=== PATIENT | female | born 1995 | race Caucasian/White ===

== ENCOUNTER 2017-06-21 15:09 | Inpatient (IN) | payer BC ==
[~2017-06-21] VITALS: Ht 162.6 cm; Wt 54.4 kg
[2017-06-21] VITALS (7 sets, daily range): BP systolic 104–116; BP diastolic 55–72
[2017-06-21] MEDS ORDERED: GUANFACINE HCL1 MG PO (15:12)
[2017-06-21] MEDS ORDERED: LAMOTRIGINE200 MG PO (15:12)
[2017-06-21] MEDS ORDERED: LEXAPRO20 MG ORAL (15:12)
[2017-06-21] MEDS ORDERED: KLONOPIN1 MG ORAL (15:12)
--- NOTE | 2017-06-21 15:22 | Emergency Room Report ---
History of Present Illness General Chief Complaint: Overdose Source: Patient, EMS Present Illness HPI 21-year-old female brought in by EMS and [employer] with suspected overdose Patient allegedly texted a friend 14 hours prior and stated that she wanted to hurt herself Police were contacted at the time, but did not go to residence Patient endorses "50" clonazepam tablets, and a bottle of wine She also cut right-sided neck and both wrists history otherwise limited due to altered mental status and lethargy Allergies: Coded Allergies: No Known Allergies (Unverified , 06/21/17) Patient History Past Medical History: unable to obtain, psych hx Past Surgical History: unable to obtain Pertinent Family History: unable to obtain Social History: Denies: smoking, alcohol use, drug use Now: No Immunizations: UTD Reviewed Nursing Documentation: PMH: Agreed, PSxH: Agreed Nursing Documentation-PMH Past Medical History: No History, Except For Review of Systems All Other Systems: negative except mentioned in HPI Physical Exam Vital Signs Date Time Temp Pulse Resp B/P (MAP) Pulse Ox O2 Delivery O2 Flow Rate FiO2 06/21/17 15:04 82 16 102/55 100 Room Air Sp02 EP Interpretation: reviewed, normal General Appearance: normal inspection, well appearing, no apparent distress, lethargic Head: normocephalic, atraumatic Eyes: bilateral eye PERRL, bilateral eye EOMI, bilateral eye other - pupils dilated ENT: normal ENT inspection, hearing grossly normal, normal voice Neck: normal inspection, full range of motion, supple, no bony tend Respiratory: normal inspection, lungs clear, normal breath sounds, no respiratory distress, no retraction, no accessory muscle use, no wheezing, speaking full sentences Cardiovascular #1: regular rate, rhythm, no edema Gastrointestinal: normal inspection, normal bowel sounds, non tender, soft, no guarding, no hernia Genitourinary: no CVA tenderness Musculoskeletal: normal inspection, back normal, normal range of motion, Mary' s Sign negative Neurologic: normal inspection, alert, responsive, field account manager III-XII nml as tested, motor strength/tone normal, speech normal Psychiatric: normal inspection, judgement/insight normal, mood/affect normal Skin: normal inspection, normal color, no rash, other - abrasion to right side of neck, right wrist. Small 1cm lac to left wrist Medical Decision Making Diagnostic Impression: Primary Impression: Drug overdose Qualified Codes: T50.902A - Poisoning by unspecified drugs, medicaments and biological substances, intentional self-harm, initial encounter Additional Impression: UTI (urinary tract infection) Qualified Codes: N30.01 - Acute cystitis with hematuria ER Course 21-year-old female with suspected overdose on benzodiazepines and alcohol Onset unknown, possibly 11 PM, 14 hours prior Pupils are dilated, respiratory rate is normal, unlikely opioid overdose EKG has normal QTC, no seizure activity. Troponin normal. Urine tox negative, alcohol level negative. No other major metabolic abnormalities UA grossly infected for UTI, was given IV Rocephin Small lac on left wrist - over 12 hours, will leave for wound healing with secondary intention. All wounds cleaned, bandaged. Telemetry admission per panel, Dr. Schafer at 4:10 PM EKG Diagnostic Results Rate: normal Rhythm: NSR ST Segments: no acute changes ASA given to the pt in ED: No Rhythm Strip Diag. Results EP Interpretation: yes Rate: 78 Rhythm: NSR, other - +PVC Last Vital Signs Date Time Temp Pulse Resp B/P (MAP) Pulse Ox O2 Delivery O2 Flow Rate FiO2 06/21/17 15:04 82 16 102/55 100 Room Air Status: improved Disposition: ADMITTED INPATIENT Condition: Serious JUAN MERLOS M.D. Jun 21, 2017 15:22
[2017-06-21 15:43] LABS: MEAN CORPUSCULAR HEMOGLOBIN 22.3 PG (27.0-31.0); MEAN CORPUSCULAR HGB CONC 30.5 G/DL (32.0-36.0); MEAN CORPUSCULAR VOLUME 73 FL (80-99); MEAN PLATELET VOLUME 10.3 FL (6.5-10.1); PLATELET COUNT 182 K/UL (150-450); RED BLOOD COUNT 4.78 M/UL (4.20-5.40); RED CELL DISTRIBUTION WIDTH 17.6 % (11.6-14.8); WHITE BLOOD COUNT 8.4 K/UL (4.8-10.8)
[2017-06-21 15:48] LABS: APPEARANCE,URINE SLIGHTLY CLOUDY; KETONES,URINE NEGATIVE (NEGATIVE); LEUKOCYTE ESTERASE ,URINE 3+ (NEGATIVE); NITRITE,URINE NEGATIVE (NEGATIVE); PH,URINE 6 (4.5-8.0); PROTEIN,URINE 3+ (NEGATIVE); UROBILINOGEN,URINE NORMAL MG/DL (0.0-1.0)
[2017-06-21 15:53] LABS: ANION GAP 9 mmol/L (5-15); CALCIUM 9.2 MG/DL (8.5-10.1); CARBON DIOXIDE 28 MMOL/L (21-32); CHLORIDE 105 MMOL/L (98-107); CREATININE 1.3 MG/DL (0.55-1.30); GLOMERULAR FILTRATION RATE 52.2 mL/min (>60); POTASSIUM 4.2 MMOL/L (3.5-5.1); SODIUM 142 MMOL/L (136-145)
[2017-06-21 15:58] LABS: ALANINE AMINOTRANSFERASE 11 U/L (12-78); ALBUMIN/GLOBULIN RATIO 1.1 (1.0-2.7); ASPARTATE AMINO TRANSFERASE 14 U/L (15-37); TOTAL PROTEIN 7.8 G/DL (6.4-8.2)
[2017-06-21 16:02] LABS: BACTERIA,URINE MODERATE /HPF; SQUAMOUS EPITHELIAL CELL,UR FEW /LPF (NONE/OCC); WBC,URINE 30-40 /HPF (0 - 2)
[2017-06-21 16:08] LABS: ACETAMINOPHEN < 2 MCG/ML (10-30); ALCOHOL < 3 mg/dL
[2017-06-21] MEDS ORDERED: cefTRIAXone 1 GM in NS 55 ML IVPB ONE (16:15)
[2017-06-21 16:26] LABS: BAND NEUTROPHILS % (MANUAL) 1 % (0-8); BASOPHILS % (MANUAL) 0 % (0-2); EOSINOPHILS % (MANUAL) 0 % (0-3); LYMPHOCYTES % (MANUAL) 9 % (20-45); NEUTROPHILS % (MANUAL) 85 % (45-75); PLATELET ESTIMATE ADEQUATE; PLATELET MORPHOLOGY NORMAL; TOTAL CELLS COUNTED 100
[2017-06-21 16:27] LABS: HYPOCHROMASIA 1+
--- NOTE | 2017-06-21 19:04 | History and Physical ---
History of Present Illness General Date patient seen: Jun 21, 2017 Reason for Hospitalization: Overdose Present Illness HPI 21-year-old female with unknown PMHxo brought in by EMS and [employer] with suspected overdose. She texted a friend 14 hours prior and stated that she wanted to hurt herself Patient too "50" clonazepam tablets, and a bottle of wine. She was somnolent on arrival and admitted to telemetry for further evaluation. Allergies: Coded Allergies: No Known Allergies (Unverified , 06/21/17) Medication History Scheduled Clonazepam* (Klonopin*), 1 MG ORAL Q6H, (Reported) Escitalopram Oxalate* (Lexapro*), 20 MG ORAL DAILY, (Reported) Miscellaneous Medications Guanfacine Hcl (Guanfacine Hcl), 1 MG PO, (Reported) Lamotrigine (Lamotrigine), 200 MG PO, (Reported) Patient History Healthcare decision maker Resuscitation status Advanced Directive on File Review of Systems Constitutional: Reports: no symptoms Eye: Reports: no symptoms All Other Systems: negative except mentioned in HPI Physical Exam General Appearance: lethargic Lines, tubes and drains: peripheral HEENT: normocephalic, atraumatic Neck: non-tender, normal alignment Respiratory/Chest: chest wall non-tender, lungs clear Cardiovascular/Chest: normal peripheral pulses, normal rate Abdomen: normal bowel sounds, non tender Genitourinary/Rectal: normal genital exam Extremities: normal range of motion Skin Exam: normal pigmentation Last 24 Hour Vital Signs Date Time Temp Pulse Resp B/P (MAP) Pulse Ox O2 Delivery O2 Flow Rate FiO2 06/21/17 17:54 97.0 75 22 116/67 98 Room Air 06/21/17 17:00 68 18 116/65 99 Room Air 06/21/17 16:30 68 18 112/61 99 Room Air 06/21/17 15:30 77 19 104/55 99 Room Air 06/21/17 15:20 84 14 06/21/17 15:04 82 16 102/55 100 Room Air Intake and Output 06/21/17 06/22/17 19:00 07:00 Intake Total 1055 ml Balance 1055 ml Intake IV Total 1055 ml Laboratory Tests Test 06/21/17 15:12 06/21/17 15:30 White Blood Count 8.4 K/UL (4.8-10.8) Red Blood Count 4.78 M/UL (4.20-5.40) Hemoglobin 10.7 G/DL (12.0-16.0) L Hematocrit 34.9 % (37.0-47.0) L Mean Corpuscular Volume 73 FL (80-99) L Mean Corpuscular Hemoglobin 22.3 PG (27.0-31.0) L Mean Corpuscular Hemoglobin Concent 30.5 G/DL (32.0-36.0) L Red Cell Distribution Width 17.6 % (11.6-14.8) H Platelet Count 182 K/UL (150-450) Mean Platelet Volume 10.3 FL (6.5-10.1) H Neutrophils (%) (Auto) % (45.0-75.0) Lymphocytes (%) (Auto) % (20.0-45.0) Monocytes (%) (Auto) % (1.0-10.0) Eosinophils (%) (Auto) % (0.0-3.0) Basophils (%) (Auto) % (0.0-2.0) Differential Total Cells Counted 100 Neutrophils % (Manual) 85 % (45-75) H Lymphocytes % (Manual) 9 % (20-45) L Monocytes % (Manual) 5 % (1-10) Eosinophils % (Manual) 0 % (0-3) Basophils % (Manual) 0 % (0-2) Band Neutrophils 1 % (0-8) Platelet Estimate Adequate Platelet Morphology Normal Red Blood Cell Morphology Hypochromasia 1+ Sodium Level 142 MMOL/L (136-145) Potassium Level 4.2 MMOL/L (3.5-5.1) Chloride Level 105 MMOL/L (98-107) Carbon Dioxide Level 28 MMOL/L (21-32) Anion Gap 9 mmol/L (5-15) Blood Urea Nitrogen 16 mg/dL (7-18) Creatinine 1.3 MG/DL (0.55-1.30) Estimat Glomerular Filtration Rate 52.2 mL/min (>60) Glucose Level 113 MG/DL (74-106) H Calcium Level 9.2 MG/DL (8.5-10.1) Total Bilirubin 0.9 MG/DL (0.2-1.0) Aspartate Amino Transf (AST/SGOT) 14 U/L (15-37) L Alanine Aminotransferase (ALT/SGPT) 11 U/L (12-78) L Alkaline Phosphatase 84 U/L (46-116) Total Creatine Kinase 69 U/L (26-308) Troponin I 0.000 ng/mL (0.000-0.056) Total Protein 7.8 G/DL (6.4-8.2) Albumin 4.1 G/DL (3.4-5.0) Globulin 3.7 g/dL Albumin/Globulin Ratio 1.1 (1.0-2.7) Salicylates Level < 0.2 ug/mL (2.8-20) L Acetaminophen Level < 2 MCG/ML (10-30) L Serum Alcohol < 3 mg/dL Urine Color Pale yellow Urine Appearance Slightly cloudy Urine pH 6 (4.5-8.0) Urine Specific [place] 1.015 (1.005-1.035) Urine Protein 3+ (NEGATIVE) H Urine Glucose (UA) Negative (NEGATIVE) Urine Ketones Negative (NEGATIVE) Urine Occult Blood 5+ (NEGATIVE) H Urine Nitrite Negative (NEGATIVE) Urine Bilirubin Negative (NEGATIVE) Urine Urobilinogen Normal MG/DL (0.0-1.0) Urine Leukocyte Esterase 3+ (NEGATIVE) H Urine RBC 5-10 /HPF (0 - 2) H Urine WBC 30-40 /HPF (0 - 2) H Urine Squamous Epithelial Cells Few /LPF (NONE/OCC) Urine Bacteria Moderate /HPF (NONE) H Urine HCG, Qualitative Negative Urine Opiates Screen Negative (NEGATIVE) Urine Barbiturates Screen Negative (NEGATIVE) Phencyclidine (PCP) Screen Negative (NEGATIVE) Urine Amphetamines Screen Negative (NEGATIVE) Urine Benzodiazepines Screen Negative (NEGATIVE) Urine Cocaine Screen Negative (NEGATIVE) Urine Marijuana (THC) Screen Negative (NEGATIVE) Height (Feet): 5 Height (Inches): 4.00 Weight (Pounds): 120 Assessment/Plan Problem List: (1) Acute encephalopathy ICD Codes: G93.40 - Encephalopathy, unspecified SNOMED: [id number] (2) Drug overdose ICD Codes: T50.901A - Poisoning by unspecified drugs, medicaments and biological substances, accidental (unintentional), initial encounter SNOMED: [id number] Qualifiers: Qualified Codes: T50.902A - Poisoning by unspecified drugs, medicaments and biological substances, intentional self-harm, initial encounter Assessment/Plan npo IV fluids telemetry monitoring Psych evaluation dvt prophylaxis NEIL HOSKINS Jun 21, 2017 19:04
[2017-06-21] MEDS ORDERED: Morphine Sulfate 2mg/ml Inj IVP PRN (19:15)
[2017-06-21] MEDS ORDERED: LORazepam Inj 2mg/ml 1ml IV PRN (19:15)
[2017-06-21] MEDS: D5 1/2NS 1,000 ML IV SCH (21:17)
[2017-06-21] MEDS: Heparin 5000 units/ml inj SUBQ SCH (21:19)
[2017-06-22] VITALS: BP 90/51
[2017-06-22 04:00] VITALS: BP 91/54
[2017-06-22 07:47] LABS: BASOPHILS % (AUTO) 0.5 % (0.0-2.0); EOSINOPHILS % (AUTO) 0.5 % (0.0-3.0); LYMPHOCYTES % (AUTO) 16.6 % (20.0-45.0); MEAN CORPUSCULAR HEMOGLOBIN 22.6 PG (27.0-31.0); MEAN CORPUSCULAR HGB CONC 31.9 G/DL (32.0-36.0); MEAN CORPUSCULAR VOLUME 71 FL (80-99); MEAN PLATELET VOLUME 11.7 FL (6.5-10.1); MONOCYTES % (AUTO) 7.2 % (1.0-10.0); NEUTROPHILS % (AUTO) 75.2 % (45.0-75.0); PLATELET COUNT 193 K/UL (150-450); RED CELL DISTRIBUTION WIDTH 17.5 % (11.6-14.8)
[2017-06-22 07:58] LABS: ALANINE AMINOTRANSFERASE 9 U/L (12-78); ANION GAP 7 mmol/L (5-15); ASPARTATE AMINO TRANSFERASE 12 U/L (15-37); CALCIUM 8.5 MG/DL (8.5-10.1); CARBON DIOXIDE 27 MMOL/L (21-32); CHLORIDE 105 MMOL/L (98-107); CREATININE 1.1 MG/DL (0.55-1.30); GLOMERULAR FILTRATION RATE > 60 mL/min (>60); SODIUM 139 MMOL/L (136-145); TOTAL PROTEIN 6.6 G/DL (6.4-8.2)
[2017-06-22 08:00] VITALS: BP 97/55
[2017-06-22] MEDS: Heparin 5000 units/ml inj SUBQ SCH ×2 (10:21→22:04)
[2017-06-22 12:00] VITALS: BP 93/47
--- NOTE | 2017-06-22 13:48 | Pulmonology Progress Note ---
Assessment/Plan Problems: (1) Acute encephalopathy (2) Drug overdose Assessment/Plan still somnolent iv fluids talked to mother at the bed site, she [place] arranged a bed at a psych [place] state, she will drive her there by herself once she is more awake. Subjective ROS Limited/Unobtainable: No Constitutional: Reports: no symptoms HEENT: Repors: no symptoms Respiratory: Reports: no symptoms Allergies: Coded Allergies: No Known Allergies (Unverified , 06/21/17) Objective Last 24 Hour Vital Signs Date Time Temp Pulse Resp B/P (MAP) Pulse Ox O2 Delivery O2 Flow Rate FiO2 06/22/17 08:00 97.0 69 18 97/55 100 Room Air 06/22/17 08:00 73 06/22/17 04:00 99.3 69 19 91/54 96 Room Air 06/22/17 04:00 79 06/22/17 00:00 98.2 80 20 90/51 100 Room Air 06/22/17 00:00 78 06/21/17 20:00 99.0 77 20 114/72 100 Room Air 06/21/17 19:45 98.4 76 17 110/62 99 Room Air 06/21/17 19:32 98.4 76 17 110/62 99 Room Air 06/21/17 19:05 74 16 114/64 100 Room Air 06/21/17 17:54 97.0 75 22 116/67 98 Room Air 06/21/17 17:00 68 18 116/65 99 Room Air 06/21/17 16:30 68 18 112/61 99 Room Air 06/21/17 15:30 77 19 104/55 99 Room Air 06/21/17 15:20 84 14 06/21/17 15:04 82 16 102/55 100 Room Air Intake and Output 06/22/17 06/23/17 19:00 07:00 # Voids 1 General Appearance: WD/WN HEENT: normocephalic Respiratory/Chest: chest wall non-tender, lungs clear Breasts: no masses Cardiovascular: normal peripheral pulses Abdomen: normal bowel sounds, soft, non tender Genitourinary: normal external genitalia Skin: no rash Microbiology Date/Time Source Procedure Growth Status 06/21/17 15:30 Urine,Clean Catch Urine Culture - Preliminary NO GROWTH Resulted Laboratory Tests 06/21/17 15:12: White Blood Count 8.4, Red Blood Count 4.78, Hemoglobin 10.7L, Hematocrit 34.9L , Mean Corpuscular Volume 73L, Mean Corpuscular Hemoglobin 22.3L, Mean Corpuscular Hemoglobin Concent 30.5L, Red Cell Distribution Width 17.6H, Platelet Count 182, Mean Platelet Volume 10.3H, Neutrophils (%) (Auto) , Lymphocytes (%) (Auto) , Monocytes (%) (Auto) , Eosinophils (%) (Auto) , Basophils (%) (Auto) , Differential Total Cells Counted 100, Neutrophils % ( Manual) 85H, Lymphocytes % (Manual) 9L, Monocytes % (Manual) 5, Eosinophils % ( Manual) 0, Basophils % (Manual) 0, Band Neutrophils 1, Platelet Estimate Adequate, Platelet Morphology Normal, Red Blood Cell Morphology , Hypochromasia 1+, Sodium Level 142, Potassium Level 4.2, Chloride Level 105, Carbon Dioxide Level 28, Anion Gap 9, Blood Urea Nitrogen 16, Creatinine 1.3, Estimat Glomerular Filtration Rate 52.2, Glucose Level 113H, Calcium Level 9.2, Total Bilirubin 0.9, Aspartate Amino Transf (AST/SGOT) 14L, Alanine Aminotransferase ( ALT/SGPT) 11L, Alkaline Phosphatase 84, Total Creatine Kinase 69, Troponin I 0.000, Total Protein 7.8, Albumin 4.1, Globulin 3.7, Albumin/Globulin Ratio 1.1 , Salicylates Level < 0.2L, Acetaminophen Level < 2L, Serum Alcohol < 3 06/21/17 15:30: Urine Color Pale yellow, Urine Appearance Slightly cloudy, Urine pH 6, Urine Specific [place] 1.015, Urine Protein 3+H, Urine Glucose (UA) Negative, Urine Ketones Negative, Urine Occult Blood 5+H, Urine Nitrite Negative, Urine Bilirubin Negative, Urine Urobilinogen Normal, Urine Leukocyte Esterase 3+H, Urine RBC 5-10H, Urine WBC 30-40H, Urine Squamous Epithelial Cells Few, Urine Bacteria ModerateH, Urine HCG, Qualitative Negative, Urine Opiates Screen Negative, Urine Barbiturates Screen Negative, Phencyclidine (PCP) Screen Negative, Urine Amphetamines Screen Negative, Urine Benzodiazepines Screen Negative, Urine Cocaine Screen Negative, Urine Marijuana (THC) Screen Negative 06/22/17 06:50: White Blood Count 8.0, Red Blood Count 4.10L, Hemoglobin 9.3L, Hematocrit 29.1L , Mean Corpuscular Volume 71L, Mean Corpuscular Hemoglobin 22.6L, Mean Corpuscular Hemoglobin Concent 31.9L, Red Cell Distribution Width 17.5H, Platelet Count 193, Mean Platelet Volume 11.7H, Neutrophils (%) (Auto) 75.2H, Lymphocytes (%) (Auto) 16.6L, Monocytes (%) (Auto) 7.2, Eosinophils (%) (Auto) 0.5, Basophils (%) (Auto) 0.5, Sodium Level 139, Potassium Level 4.0, Chloride Level 105, Carbon Dioxide Level 27, Anion Gap 7, Blood Urea Nitrogen 15, Creatinine 1.1, Estimat Glomerular Filtration Rate > 60, Glucose Level 122H, Calcium Level 8.5, Total Bilirubin 0.7, Aspartate Amino Transf (AST/SGOT) 12L, Alanine Aminotransferase (ALT/SGPT) 9L, Alkaline Phosphatase 72, Total Protein 6.6, Albumin 3.3L, Globulin 3.3, Albumin/Globulin Ratio 1.0 Current Medications Medications (Trade) Dose Ordered Sig/Ester Route PRN Reason Start Time Stop Time Status Last Admin Dose Admin Dextrose (Dextrose 50%) STAT PRN IV Hypoglycemia 06/21/17 19:15 07/21/17 19:14 Dextrose/Sodium Chloride 1,000 ml @ 50 mls/hr Q20H IV 06/21/17 20:30 07/21/17 20:29 06/21/17 21:17 Heparin Sodium (Porcine) (Heparin 5000 units/ml) 5,000 units EVERY 12 HOURS SUBQ 06/21/17 21:00 07/21/17 20:59 06/22/17 10:21 Lorazepam (Ativan 2mg/ml 1ml) 0.5 mg Q4H PRN IV For Anxiety 06/21/17 19:15 06/28/17 19:14 Morphine Sulfate (Morphine Sulfate) 1 mg Q4H PRN IVP Moderate to Severe Pain 06/21/17 19:15 06/28/17 19:14 Ondansetron HCl (Zofran) 4 mg Q6H PRN IVP Nausea & Vomiting 06/21/17 19:15 07/21/17 19:14 NEIL HOSKINS Jun 22, 2017 13:48
--- NOTE | 2017-06-22 14:58 | Cardiology Progress Note ---
Assessment/Plan Assessment/Plan anemai hypotesnion doubt sig in this young woman suisidal atteemtp uti anemia iv hysdaration abx for posible uti watch h/h iron and stool studies [id number] Objective Last 24 Hour Vital Signs Date Time Temp Pulse Resp B/P (MAP) Pulse Ox O2 Delivery O2 Flow Rate FiO2 06/22/17 12:00 97.3 76 18 93/47 99 Room Air 06/22/17 08:00 97.0 69 18 97/55 100 Room Air 06/22/17 08:00 73 06/22/17 04:00 99.3 69 19 91/54 96 Room Air 06/22/17 04:00 79 06/22/17 00:00 98.2 80 20 90/51 100 Room Air 06/22/17 00:00 78 06/21/17 20:00 99.0 77 20 114/72 100 Room Air 06/21/17 19:45 98.4 76 17 110/62 99 Room Air 06/21/17 19:32 98.4 76 17 110/62 99 Room Air 06/21/17 19:05 74 16 114/64 100 Room Air 06/21/17 17:54 97.0 75 22 116/67 98 Room Air 06/21/17 17:00 68 18 116/65 99 Room Air 06/21/17 16:30 68 18 112/61 99 Room Air 06/21/17 15:30 77 19 104/55 99 Room Air 06/21/17 15:20 84 14 06/21/17 15:04 82 16 102/55 100 Room Air Intake and Output 06/22/17 06/23/17 19:00 07:00 # Voids 1 Laboratory Tests Test 06/21/17 15:12 06/21/17 15:30 06/22/17 06:50 White Blood Count 8.4 K/UL (4.8-10.8) 8.0 K/UL (4.8-10.8) Red Blood Count 4.78 M/UL (4.20-5.40) 4.10 M/UL (4.20-5.40) L Hemoglobin 10.7 G/DL (12.0-16.0) L 9.3 G/DL (12.0-16.0) L Hematocrit 34.9 % (37.0-47.0) L 29.1 % (37.0-47.0) L Mean Corpuscular Volume 73 FL (80-99) L 71 FL (80-99) L Mean Corpuscular Hemoglobin 22.3 PG (27.0-31.0) L 22.6 PG (27.0-31.0) L Mean Corpuscular Hemoglobin Concent 30.5 G/DL (32.0-36.0) L 31.9 G/DL (32.0-36.0) L Red Cell Distribution Width 17.6 % (11.6-14.8) H 17.5 % (11.6-14.8) H Platelet Count 182 K/UL (150-450) 193 K/UL (150-450) Mean Platelet Volume 10.3 FL (6.5-10.1) H 11.7 FL (6.5-10.1) H Neutrophils (%) (Auto) % (45.0-75.0) 75.2 % (45.0-75.0) H Lymphocytes (%) (Auto) % (20.0-45.0) 16.6 % (20.0-45.0) L Monocytes (%) (Auto) % (1.0-10.0) 7.2 % (1.0-10.0) Eosinophils (%) (Auto) % (0.0-3.0) 0.5 % (0.0-3.0) Basophils (%) (Auto) % (0.0-2.0) 0.5 % (0.0-2.0) Differential Total Cells Counted 100 Neutrophils % (Manual) 85 % (45-75) H Lymphocytes % (Manual) 9 % (20-45) L Monocytes % (Manual) 5 % (1-10) Eosinophils % (Manual) 0 % (0-3) Basophils % (Manual) 0 % (0-2) Band Neutrophils 1 % (0-8) Platelet Estimate Adequate Platelet Morphology Normal Red Blood Cell Morphology Hypochromasia 1+ Sodium Level 142 MMOL/L (136-145) 139 MMOL/L (136-145) Potassium Level 4.2 MMOL/L (3.5-5.1) 4.0 MMOL/L (3.5-5.1) Chloride Level 105 MMOL/L (98-107) 105 MMOL/L (98-107) Carbon Dioxide Level 28 MMOL/L (21-32) 27 MMOL/L (21-32) Anion Gap 9 mmol/L (5-15) 7 mmol/L (5-15) Blood Urea Nitrogen 16 mg/dL (7-18) 15 mg/dL (7-18) Creatinine 1.3 MG/DL (0.55-1.30) 1.1 MG/DL (0.55-1.30) Estimat Glomerular Filtration Rate 52.2 mL/min (>60) > 60 mL/min (>60) Glucose Level 113 MG/DL (74-106) H 122 MG/DL (74-106) H Calcium Level 9.2 MG/DL (8.5-10.1) 8.5 MG/DL (8.5-10.1) Total Bilirubin 0.9 MG/DL (0.2-1.0) 0.7 MG/DL (0.2-1.0) Aspartate Amino Transf (AST/SGOT) 14 U/L (15-37) L 12 U/L (15-37) L Alanine Aminotransferase (ALT/SGPT) 11 U/L (12-78) L 9 U/L (12-78) L Alkaline Phosphatase 84 U/L (46-116) 72 U/L (46-116) Total Creatine Kinase 69 U/L (26-308) Troponin I 0.000 ng/mL (0.000-0.056) Total Protein 7.8 G/DL (6.4-8.2) 6.6 G/DL (6.4-8.2) Albumin 4.1 G/DL (3.4-5.0) 3.3 G/DL (3.4-5.0) L Globulin 3.7 g/dL 3.3 g/dL Albumin/Globulin Ratio 1.1 (1.0-2.7) 1.0 (1.0-2.7) Salicylates Level < 0.2 ug/mL (2.8-20) L Acetaminophen Level < 2 MCG/ML (10-30) L Serum Alcohol < 3 mg/dL Urine Color Pale yellow Urine Appearance Slightly cloudy Urine pH 6 (4.5-8.0) Urine Specific [place] 1.015 (1.005-1.035) Urine Protein 3+ (NEGATIVE) H Urine Glucose (UA) Negative (NEGATIVE) Urine Ketones Negative (NEGATIVE) Urine Occult Blood 5+ (NEGATIVE) H Urine Nitrite Negative (NEGATIVE) Urine Bilirubin Negative (NEGATIVE) Urine Urobilinogen Normal MG/DL (0.0-1.0) Urine Leukocyte Esterase 3+ (NEGATIVE) H Urine RBC 5-10 /HPF (0 - 2) H Urine WBC 30-40 /HPF (0 - 2) H Urine Squamous Epithelial Cells Few /LPF (NONE/OCC) Urine Bacteria Moderate /HPF (NONE) H Urine HCG, Qualitative Negative Urine Opiates Screen Negative (NEGATIVE) Urine Barbiturates Screen Negative (NEGATIVE) Phencyclidine (PCP) Screen Negative (NEGATIVE) Urine Amphetamines Screen Negative (NEGATIVE) Urine Benzodiazepines Screen Negative (NEGATIVE) Urine Cocaine Screen Negative (NEGATIVE) Urine Marijuana (THC) Screen Negative (NEGATIVE) Microbiology Date/Time Source Procedure Growth Status 06/21/17 15:30 Urine,Clean Catch Urine Culture - Preliminary NO GROWTH Resulted ARIEL RODRIGUES Jun 22, 2017 14:58
[2017-06-22 15:22] LABS: IRON 16 ug/dL (50-175); TOTAL IRON BINDING CAPACITY 503 ug/dL (250-450)
[2017-06-22 16:00] VITALS: BP 101/57
--- NOTE | 2017-06-22 17:00 | Consultation ---
Consult Note Consult Note ID DIC # [id number] WALT MAYER M.D. Jun 22, 2017 17:00
--- NOTE | 2017-06-22 17:44 | Neurology Progress Note ---
Interim History Interim History ROS Limited/Unobtainable: No Objective Physical Exam Last Vital Signs Date Time Temp Pulse Resp B/P (MAP) Pulse Ox O2 Delivery O2 Flow Rate FiO2 06/22/17 16:00 97.9 70 18 101/57 99 Room Air Laboratory Tests Test 06/22/17 06:50 White Blood Count 8.0 K/UL (4.8-10.8) Red Blood Count 4.10 M/UL (4.20-5.40) L Hemoglobin 9.3 G/DL (12.0-16.0) L Hematocrit 29.1 % (37.0-47.0) L Mean Corpuscular Volume 71 FL (80-99) L Mean Corpuscular Hemoglobin 22.6 PG (27.0-31.0) L Mean Corpuscular Hemoglobin Concent 31.9 G/DL (32.0-36.0) L Red Cell Distribution Width 17.5 % (11.6-14.8) H Platelet Count 193 K/UL (150-450) Mean Platelet Volume 11.7 FL (6.5-10.1) H Neutrophils (%) (Auto) 75.2 % (45.0-75.0) H Lymphocytes (%) (Auto) 16.6 % (20.0-45.0) L Monocytes (%) (Auto) 7.2 % (1.0-10.0) Eosinophils (%) (Auto) 0.5 % (0.0-3.0) Basophils (%) (Auto) 0.5 % (0.0-2.0) Sodium Level 139 MMOL/L (136-145) Potassium Level 4.0 MMOL/L (3.5-5.1) Chloride Level 105 MMOL/L (98-107) Carbon Dioxide Level 27 MMOL/L (21-32) Anion Gap 7 mmol/L (5-15) Blood Urea Nitrogen 15 mg/dL (7-18) Creatinine 1.1 MG/DL (0.55-1.30) Estimat Glomerular Filtration Rate > 60 mL/min (>60) Glucose Level 122 MG/DL (74-106) H Calcium Level 8.5 MG/DL (8.5-10.1) Iron Level 16 ug/dL (50-175) L Total Iron Binding Capacity 503 ug/dL (250-450) H Percent Iron Saturation 3 % (15-50) L Unsaturated Iron Binding 487 ug/dL (112-346) H Total Bilirubin 0.7 MG/DL (0.2-1.0) Aspartate Amino Transf (AST/SGOT) 12 U/L (15-37) L Alanine Aminotransferase (ALT/SGPT) 9 U/L (12-78) L Alkaline Phosphatase 72 U/L (46-116) Total Protein 6.6 G/DL (6.4-8.2) Albumin 3.3 G/DL (3.4-5.0) L Globulin 3.3 g/dL Albumin/Globulin Ratio 1.0 (1.0-2.7) Impression/Recommendations Recommendations #[id number] psych eval/clearance DELORES Mccarthy Jun 22, 2017 17:44
[2017-06-22] MEDS ORDERED: ceFAZolin sod 1 GM in D5W 55 ML IVPB SCH (18:00)
[2017-06-22] MEDS: D5 1/2NS 1,000 ML IV SCH ×2 (18:44→22:30)
[2017-06-22 20:14] VITALS: BP 127/63
--- NOTE | 2017-06-22 22:16 | Consultation ---
DATE OF CONSULTATION: 06/22/2017 CARDIOLOGY CONSULTATION CONSULTING PHYSICIAN: Jesu Shea M.D. REFERRING PHYSICIAN: Bart Schafer M.D. REASON FOR REFERRAL: Fluctuating blood pressure. HISTORY OF PRESENT ILLNESS: This is a very unfortunate 21-year-old female, who apparently has loss of consciousness after what appears to be an intentional overdose of prescription medications. Slurred speech was noted by the paramedics with lethargy with superficial laceration over the right side of the neck as well as left wrist with bleeding. Vital signs were stable at the time they found her. The patient had blood pressure 102/55 with heart rate of 80s. The patient was brought to the emergency room at [facility] and has been admitted to the hospital and has had some blood pressure readings as low as 90/50 this morning and most recently 97/55. The patient is too lethargic to answer questions. The patient's mother is at the bedside indicating there have been no reports of any pain any where. The patient has just been drowsy. She has been waking up for a short period of time and falling asleep. PAST MEDICAL HISTORY: Positive for bipolar disorder. ALLERGIES: No known drug allergies. SOCIAL HISTORY: No drug use. Occasional alcohol use. No tobacco. REVIEW OF SYSTEMS: Really unable to obtain. There are no reports of any vomiting or diarrhea according to the patient's mother. No fevers or chills. No coughing. PHYSICAL EXAMINATION: GENERAL: Shows her to be a drowsy young female, in no respiratory distress. NECK: Supple. No jugular venous distention. There is a superficial laceration along the right side of the neck line. LUNGS: Appear to be clear to auscultation and percussion. Effort dependent respirations. CARDIAC: Regular rate and rhythm. ABDOMEN: Soft and nontender. Positive bowel sounds. EXTREMITIES: There is no clubbing, cyanosis, nor is there any edema. NEUROLOGICAL: She is very drowsy, but responsive and arousable. LABORATORY DATA: White count of 8, hemoglobin 9.3, and a platelet count of 193,000. MCV of 71, 85 polys, 9 lymphs, and 5 monos. Hypochromasia. Sodium is 139, potassium 4.0, chloride 105, bicarbonate 27, BUN of 15, creatinine 1.1, and glucose of 122. Liver function tests are normal. Troponin first set was negative. Albumin 3.3. Urinalysis shows 30 to 40 WBCs and 5 to 10 RBCs. Toxicology screen is negative for salicylates, acetaminophen, alcohol, opiates, barbiturates, phencyclidine, amphetamines, benzodiazepines, cocaine, as well as marijuana. ASSESSMENT: 1. Hypotension, probably not too far from the patient's baseline. 2. Attempted suicide. 3. Drug overdose, intentional. 4. Lacerations of the neck and wrist as a result of attempted suicide. 5. Urinary tract infection. Dr. Schafer, this patient was seen in cardiac consultation. Really, the patient is quite drowsy and unable to provide any history. She has low blood pressure, but for a young woman of her age and size, it is unlikely to be significantly abnormal off her baseline. Nevertheless, she should continue to treat with intravenous fluids. She should receive some antibiotics for possible underlying urinary tract infection and she should have a workup for anemia including stool studies and likely will take a few more hours or may be days for the effect of the medications to wear out, I suspect, but I will not be addressing those issues. The patient had an electrocardiogram that was performed in the emergency room shows normal sinus rhythm, normal QRS axis, and no ST or T-wave abnormality of any significant degree. The patient will be followed. Jesu Shea M.D. DR: JOAQUINA JOB#: [id number] CC:
[2017-06-22] MEDS ORDERED: LORazepam Inj 2mg/ml 1ml IV PRN (23:15)
[2017-06-22] MEDS ORDERED: Morphine Sulfate 2mg/ml Inj IVP PRN (23:15)
--- NOTE | 2017-06-22 23:35 | Consultation ---
History of Present Illness General Chief Complaint: Overdose Present Illness HPI 21-year-old female, with hx of borderline pd, mdd who apparently has loss of consciousness after what appears to be an intentional overdose of prescription medications. Slurred speech was noted by the paramedics with lethargy with superficial laceration over the right side of the neck as well as left wrist with bleeding. the pt denied SI the mother was at bedside and stated that she would like to go to a facility in [place]. the pt has outpatient psych set up for her the mother and the pt requested to be discharged after the pt is medically cleared. this happened in the context of recent broke up/bf cheated Allergies: Coded Allergies: No Known Allergies (Unverified , 06/21/17) Medication History Scheduled Clonazepam* (Klonopin*), 1 MG ORAL Q6H, (Reported) Escitalopram Oxalate* (Lexapro*), 20 MG ORAL DAILY, (Reported) Miscellaneous Medications Guanfacine Hcl (Guanfacine Hcl), 1 MG PO, (Reported) Lamotrigine (Lamotrigine), 200 MG PO, (Reported) Patient History Limited by: medical condition History Provided By: Patient, Family Member, Medical Record, PMD Healthcare decision maker N Resuscitation status Full Code Advanced Directive on File No Past Medical/Surgical History Past Medical/Surgical History: (1) UTI (urinary tract infection) (2) Drug overdose (3) Acute encephalopathy Review of Systems Psychiatric: Reports: prior hx, anxiety, depressed feelings, emotional problems Physical Exam General Appearance: no apparent distress, alert Neurologic: alert, oriented x 3, responsive, normal mood/affect Last 24 Hour Vital Signs Date Time Temp Pulse Resp B/P (MAP) Pulse Ox O2 Delivery O2 Flow Rate FiO2 06/22/17 20:14 98.2 75 20 127/63 98 Room Air 75 06/22/17 16:00 97.9 70 18 101/57 99 Room Air 06/22/17 16:00 68 06/22/17 12:00 70 06/22/17 12:00 97.3 76 18 93/47 99 Room Air 06/22/17 08:00 97.0 69 18 97/55 100 Room Air 06/22/17 08:00 73 06/22/17 04:00 99.3 69 19 91/54 96 Room Air 06/22/17 04:00 79 06/22/17 00:00 98.2 80 20 90/51 100 Room Air 06/22/17 00:00 78 Intake and Output 06/22/17 06/23/17 19:00 07:00 Intake Total 120 ml 100 ml Balance 120 ml 100 ml Intake Oral 120 ml IV Total 100 ml # Voids 1 Laboratory Tests Test 06/22/17 06:50 White Blood Count 8.0 K/UL (4.8-10.8) Red Blood Count 4.10 M/UL (4.20-5.40) L Hemoglobin 9.3 G/DL (12.0-16.0) L Hematocrit 29.1 % (37.0-47.0) L Mean Corpuscular Volume 71 FL (80-99) L Mean Corpuscular Hemoglobin 22.6 PG (27.0-31.0) L Mean Corpuscular Hemoglobin Concent 31.9 G/DL (32.0-36.0) L Red Cell Distribution Width 17.5 % (11.6-14.8) H Platelet Count 193 K/UL (150-450) Mean Platelet Volume 11.7 FL (6.5-10.1) H Neutrophils (%) (Auto) 75.2 % (45.0-75.0) H Lymphocytes (%) (Auto) 16.6 % (20.0-45.0) L Monocytes (%) (Auto) 7.2 % (1.0-10.0) Eosinophils (%) (Auto) 0.5 % (0.0-3.0) Basophils (%) (Auto) 0.5 % (0.0-2.0) Sodium Level 139 MMOL/L (136-145) Potassium Level 4.0 MMOL/L (3.5-5.1) Chloride Level 105 MMOL/L (98-107) Carbon Dioxide Level 27 MMOL/L (21-32) Anion Gap 7 mmol/L (5-15) Blood Urea Nitrogen 15 mg/dL (7-18) Creatinine 1.1 MG/DL (0.55-1.30) Estimat Glomerular Filtration Rate > 60 mL/min (>60) Glucose Level 122 MG/DL (74-106) H Calcium Level 8.5 MG/DL (8.5-10.1) Iron Level 16 ug/dL (50-175) L Total Iron Binding Capacity 503 ug/dL (250-450) H Percent Iron Saturation 3 % (15-50) L Unsaturated Iron Binding 487 ug/dL (112-346) H Total Bilirubin 0.7 MG/DL (0.2-1.0) Aspartate Amino Transf (AST/SGOT) 12 U/L (15-37) L Alanine Aminotransferase (ALT/SGPT) 9 U/L (12-78) L Alkaline Phosphatase 72 U/L (46-116) Total Protein 6.6 G/DL (6.4-8.2) Albumin 3.3 G/DL (3.4-5.0) L Globulin 3.3 g/dL Albumin/Globulin Ratio 1.0 (1.0-2.7) Height (Feet): 5 Height (Inches): 4.00 Weight (Pounds): 120 Medications Current Medications Medications (Trade) Dose Ordered Sig/Ester Route PRN Reason Start Time Stop Time Status Last Admin Dose Admin Cefazolin Sodium 1 gm/Dextrose 55 ml @ 110 mls/hr Q8H IVPB 06/23/17 02:00 06/29/17 17:59 Dextrose (Dextrose 50%) STAT PRN IV Hypoglycemia 06/23/17 19:15 07/21/17 19:14 Dextrose/Sodium Chloride 1,000 ml @ 50 mls/hr Q20H IV 06/22/17 22:30 07/21/17 20:29 Heparin Sodium (Porcine) (Heparin 5000 units/ml) 5,000 units EVERY 12 HOURS SUBQ 06/23/17 09:00 07/21/17 20:59 Lorazepam (Ativan 2mg/ml 1ml) 0.5 mg Q4H PRN IV For Anxiety 06/22/17 23:15 06/28/17 19:14 Morphine Sulfate (Morphine Sulfate) 1 mg Q4H PRN IVP Moderate to Severe Pain 06/22/17 23:15 06/28/17 19:14 Ondansetron HCl (Zofran) 4 mg Q6H PRN IVP Nausea & Vomiting 06/23/17 01:15 07/21/17 19:14 Thiamine HCl (Vitamin B1) 100 mg DAILY ORAL 06/23/17 09:00 07/23/17 08:59 Assessment/Plan Status: stable Assessment/Plan BPD s/p od the pt maybe dced when medically cleared. Farhadi,Pantea M.D. Jun 22, 2017 23:35
[2017-06-23] VITALS (7 sets, daily range): BP systolic 91–113; BP diastolic 47–73
[2017-06-23] MEDS: ceFAZolin sod 1 GM in D5W 55 ML IVPB SCH ×3 (02:27→18:22)
--- NOTE | 2017-06-23 05:15 | Consultation ---
DATE OF CONSULTATION: 06/22/2017 NEUROLOGICAL CONSULTATION REQUESTING PHYSICIAN: Bart Schafer M.D. HISTORY OF PRESENT ILLNESS: This is 21-year-old female, who informed me that the day prior to admission, she became extremely stressed. She had some fight with her boyfriend and she stopped going to school. She would like to "hurt myself when I feel like I want to hurt myself." Apparently, the patient took all the medication she had plus a bottle of wine. The medicine included Klonopin, about 50 tablets of Lamictal, at least 200 mg, several pills of Lexapro. The patient also made cuts to her both wrists and the right side of the neck. Prior to this, she was texting to her friends that she would hurt herself. When paramedics arrived, she was brought to this facility, described as being lethargic, hypotensive, blood pressure 102/55 and heart rate of 82. Her pupils were dilated. Her respiratory rate was normal. Her EKG with normal QTC. There was no paroxysmal or seizure activities detected. Small ulcerations on her both wrists, cleaned and bandaged and a cut on the right side of the neck was treated. EKG with normal sinus rhythm, positive PVC. Her laboratory work included mild anemia, hemoglobin 10.7, hematocrit 34.9, low MCV and MCH. Chemistry panel with blood sugar 113, otherwise normal including normal troponin. Toxicology panel was negative including alcohol and opiates. Urinalysis with 30-40 WBCs, 3+ leukocyte esterase, and 3+ protein. Since admission until present, the patient remained drowsy. She was placed on NPO, but the last few hours became more responsive. At this point, her parents arrived, staying with her at the bedside. PAST MEDICAL HISTORY: History of affective disorder, she is under the care of a psychologist in [place] and also a psychiatrist. She denies drug abuse. She lives alone, but has a boyfriend. FAMILY HISTORY: Noncontributory. REVIEW OF SYSTEMS: The patient was somewhat incoherent stating that she would like to talk to her boyfriend right away, it would make her feel better. Meanwhile, she was very thirsty, asked some water. PHYSICAL EXAMINATION: VITAL SIGNS: Remaining stable, blood pressure 101/57, temperature 97.9 degrees, and heart rate of 70. HEENT: Head, normocephalic. There is no evidence of trauma except a recent cut in the submandibular region on the right side of the neck. Both wrist bandaged. Peripheral pulses 1+ symmetric. MENTAL STATUS: The patient is groggy, but arousable. She is able to follow commands. She was responding to questions, was able to provide with limited information. Emotional labile. Cryful, demanding . CRANIAL NERVE II: Pupils both responding to light and accommodation. Extraocular movement intact. No nystagmus. CRANIAL NERVE V: Normal corneal responses. CRANIAL NERVE VII: No facial asymmetry. CRANIAL NERVE VIII: Normal hearing. CRANIAL NERVE XI THROUGH XII: Tongue is in midline. Symmetric palate elevation. MOTOR EXAMINATION: Normal muscle tone and strength, 5/5 in all extremities. No involuntary movement. Deep tendon reflexes very brisk, 3+ bilaterally. Plantar responses flexor. SENSORY EXAMINATION: Withdrawing to pin stimulation. Gait, the patient was able to sit and stand up, but was quite unsteady. Positive Romberg test. IMPRESSION: 1. Acute drug overdose. 2. Repeated suicidal attempt. 3. Affective disorder. 4. Urinary tract infection. 5. Anemia. RECOMMENDATIONS: Continue with IV fluids, antibiotics p.o. and intravenous hydration. There is a Psychiatry evaluation. The patient cannot be discharged without clearance by Psychiatry. At this time, family indicated that they are trying to arrange hospitalization to a psychiatric facility. Thank you for allowing me to see this interesting patient in neurological consultation. Shawn Owens M.D. DR: PHOEBE JOB#: [id number] CC:
--- NOTE | 2017-06-23 05:15 | Consultation ---
DATE OF CONSULTATION: 06/22/2017 INFECTIOUS DISEASES CONSULTATION CONSULTING PHYSICIAN: Darrius Rios M.D. REQUESTING PHYSICIAN: Bart Schafer M.D. REASON FOR CONSULTATION: Evaluation of the patient for urinary tract infection. HISTORY OF PRESENT ILLNESS: The patient is a 21-year-old female, who was admitted to this medical center after the patient was trying to commit suicide and took many tablets of clonazepam. The patient currently admitted, lethargic. The patient's UA showed significant pyuria and has been consulted for possible underlying urinary tract infection. Infectious Diseases consultation has been requested for further evaluation of the patient's antibiotic management. PAST MEDICAL HISTORY: 1. Bipolar disorder. 2. Anxiety. MEDICATIONS: Currently off of antibiotics. ALLERGIES: No known drug allergies. SOCIAL HISTORY: Unknown. The patient is a poor historian. REVIEW OF SYSTEMS: The patient is a poor historian. PHYSICAL EXAMINATION: VITAL SIGNS: Temperature 97.9 degrees, blood pressure 101/57, pulse , and respiratory rate 18. HEENT: No pale conjunctivae. No icterus. NECK: No lymphadenopathy. CHEST: Clear. HEART: S1 and S2. ABDOMEN: Soft and nontender. EXTREMITIES: No cyanosis at this time. NEUROLOGIC: Lethargic. LABORATORY AND DIAGNOSTIC DATA: White blood cells 8, hemoglobin 9.3, and platelets 193,000. UA, 10-40 white blood cells and 5 to 10 red blood cells. BUN 15 and creatinine 0.1. ALT, AST, and alkaline phosphatase unremarkable. Urine culture is pending. ASSESSMENT: 1. The patient is a 21-year-old female with possible urinary tract infection. 2. Pyuria. 3. Status post drug overdose. PLAN: 1. We will start the patient on intravenous Ancef. 2. Monitor CBC. 3. Monitor BMP. 4. Monitor urine culture. 5. Based on the patient's clinical course and labs, we will do further recommendations. Thank you, Dr. Schafer, for allowing me to participate in the care of this patient. I will follow the patient with you during this hospitalization. Darrius Rios M.D. DR: TAMMI JOB#: [id number] CC:
[2017-06-23 07:11] LABS: BASOPHILS % (AUTO) 0.7 % (0.0-2.0); EOSINOPHILS % (AUTO) 1.7 % (0.0-3.0); LYMPHOCYTES % (AUTO) 23.4 % (20.0-45.0); MEAN CORPUSCULAR HEMOGLOBIN 21.2 PG (27.0-31.0); MEAN CORPUSCULAR HGB CONC 29.3 G/DL (32.0-36.0); MEAN CORPUSCULAR VOLUME 72 FL (80-99); MEAN PLATELET VOLUME 11.2 FL (6.5-10.1); MONOCYTES % (AUTO) 7.1 % (1.0-10.0); NEUTROPHILS % (AUTO) 67.1 % (45.0-75.0); PLATELET COUNT 173 K/UL (150-450); RED CELL DISTRIBUTION WIDTH 17.3 % (11.6-14.8); WHITE BLOOD COUNT 8.3 K/UL (4.8-10.8)
[2017-06-23 07:25] LABS: ALANINE AMINOTRANSFERASE 13 U/L (12-78); ANION GAP 6 mmol/L (5-15); ASPARTATE AMINO TRANSFERASE 14 U/L (15-37); CALCIUM 8.6 MG/DL (8.5-10.1); CARBON DIOXIDE 29 MMOL/L (21-32); CHLORIDE 103 MMOL/L (98-107); GLOMERULAR FILTRATION RATE > 60 mL/min (>60); MAGNESIUM 1.8 MG/DL (1.8-2.4); PHOSPHORUS 3.6 MG/DL (2.5-4.9); POTASSIUM 3.7 MMOL/L (3.5-5.1); SODIUM 137 MMOL/L (136-145); TOTAL PROTEIN 6.8 G/DL (6.4-8.2)
[2017-06-23] MEDS: Sodium Chloride 500ML 550 ML IV SCH ×2 (08:30→09:04)
[2017-06-23] MEDS ORDERED: Thiamine 100mg tab ORAL SCH (09:00)
--- NOTE | 2017-06-23 09:22 | Infectious Diseases Prog Note ---
Assessment/Plan Assessment/Plan ASSESSMENT: The patient is a 21-year-old female with UTI , probable UCx : GNR Pyuria Status post drug overdose Bipolar disorder Anxiety PLAN: cont Ancef d# 2 Monitor CC. Monitor BMP. Monitor urine culture. Subjective Allergies: Coded Allergies: No Known Allergies (Unverified , 06/21/17) Subjective afebrile Objective Vital Signs Last 24 Hour Vital Signs Date Time Temp Pulse Resp B/P (MAP) Pulse Ox O2 Delivery O2 Flow Rate FiO2 06/23/17 08:00 96.6 71 18 102/66 99 06/23/17 05:00 64 107/68 06/23/17 04:00 97.9 68 17 96/58 100 06/23/17 00:00 98.2 71 18 113/73 100 06/22/17 20:14 98.2 75 20 127/63 98 Room Air 75 06/22/17 16:00 97.9 70 18 101/57 99 Room Air 06/22/17 16:00 68 06/22/17 12:00 70 06/22/17 12:00 97.3 76 18 93/47 99 Room Air Height (Feet): 5 Height (Inches): 4.00 Weight (Pounds): 120 Respiratory/Chest: normal breath sounds, no respiratory distress Abdomen: no organomegaly, non distended Microbiology Date/Time Source Procedure Growth Status 06/21/17 15:30 Urine,Clean Catch Urine Culture - Preliminary Gram Negative Bacillus 1 Resulted Laboratory Tests Test 06/23/17 05:30 White Blood Count 8.3 K/UL (4.8-10.8) Red Blood Count 4.00 M/UL (4.20-5.40) L Hemoglobin 8.5 G/DL (12.0-16.0) L Hematocrit 28.9 % (37.0-47.0) L Mean Corpuscular Volume 72 FL (80-99) L Mean Corpuscular Hemoglobin 21.2 PG (27.0-31.0) L Mean Corpuscular Hemoglobin Concent 29.3 G/DL (32.0-36.0) L Red Cell Distribution Width 17.3 % (11.6-14.8) H Platelet Count 173 K/UL (150-450) Mean Platelet Volume 11.2 FL (6.5-10.1) H Neutrophils (%) (Auto) 67.1 % (45.0-75.0) Lymphocytes (%) (Auto) 23.4 % (20.0-45.0) Monocytes (%) (Auto) 7.1 % (1.0-10.0) Eosinophils (%) (Auto) 1.7 % (0.0-3.0) Basophils (%) (Auto) 0.7 % (0.0-2.0) Sodium Level 137 MMOL/L (136-145) Potassium Level 3.7 MMOL/L (3.5-5.1) Chloride Level 103 MMOL/L (98-107) Carbon Dioxide Level 29 MMOL/L (21-32) Anion Gap 6 mmol/L (5-15) Blood Urea Nitrogen 10 mg/dL (7-18) Creatinine 1.0 MG/DL (0.55-1.30) Estimat Glomerular Filtration Rate > 60 mL/min (>60) Glucose Level 104 MG/DL (74-106) Calcium Level 8.6 MG/DL (8.5-10.1) Phosphorus Level 3.6 MG/DL (2.5-4.9) Magnesium Level 1.8 MG/DL (1.8-2.4) Total Bilirubin 0.5 MG/DL (0.2-1.0) Aspartate Amino Transf (AST/SGOT) 14 U/L (15-37) L Alanine Aminotransferase (ALT/SGPT) 13 U/L (12-78) Alkaline Phosphatase 69 U/L (46-116) Total Protein 6.8 G/DL (6.4-8.2) Albumin 3.4 G/DL (3.4-5.0) Globulin 3.4 g/dL Albumin/Globulin Ratio 1.0 (1.0-2.7) Current Medications Medications (Trade) Dose Ordered Sig/Ester Route PRN Reason Start Time Stop Time Status Last Admin Dose Admin Cefazolin Sodium 1 gm/Dextrose 55 ml @ 110 mls/hr Q8H IVPB 06/23/17 02:00 06/29/17 17:59 06/23/17 02:27 Dextrose (Dextrose 50%) STAT PRN IV Hypoglycemia 06/23/17 19:15 07/21/17 19:14 Dextrose/Sodium Chloride 1,000 ml @ 50 mls/hr Q20H IV 06/22/17 22:30 07/21/17 20:29 Heparin Sodium (Porcine) (Heparin 5000 units/ml) 5,000 units EVERY 12 HOURS SUBQ 06/23/17 09:00 07/21/17 20:59 Lorazepam (Ativan 2mg/ml 1ml) 0.5 mg Q4H PRN IV For Anxiety 06/22/17 23:15 06/28/17 19:14 Morphine Sulfate (Morphine Sulfate) 1 mg Q4H PRN IVP Moderate to Severe Pain 06/22/17 23:15 06/28/17 19:14 Ondansetron HCl (Zofran) 4 mg Q6H PRN IVP Nausea & Vomiting 06/23/17 01:15 07/21/17 19:14 Sodium Chloride 550 ml @ 999 mls/hr Q34M IV 06/23/17 08:30 06/23/17 09:30 Thiamine HCl (Vitamin B1) 100 mg DAILY ORAL 06/23/17 09:00 07/23/17 08:59 WALT MAYER M.D. Jun 23, 2017 09:22
[2017-06-23] MEDS: Thiamine 100mg tab ORAL SCH (10:56)
[2017-06-23] MEDS: Heparin 5000 units/ml inj SUBQ SCH ×2 (10:57→20:53)
--- NOTE | 2017-06-23 18:20 | Pulmonology Progress Note ---
Assessment/Plan Problems: (1) Acute encephalopathy (2) Drug overdose Assessment/Plan still somnolent iv fluids talked to mother at the bed site, she has arranged a bed at a psych facility [place] of state, she will drive her there by herself once she is more awake. Subjective ROS Limited/Unobtainable: No Constitutional: Reports: no symptoms HEENT: Repors: no symptoms Respiratory: Reports: no symptoms Allergies: Coded Allergies: No Known Allergies (Unverified , 06/21/17) Objective Last 24 Hour Vital Signs Date Time Temp Pulse Resp B/P (MAP) Pulse Ox O2 Delivery O2 Flow Rate FiO2 06/23/17 15:56 97.9 71 18 101/54 99 06/23/17 12:00 97.9 67 18 91/56 100 06/23/17 08:00 96.6 71 18 102/66 99 06/23/17 05:00 64 107/68 06/23/17 04:00 97.9 68 17 96/58 100 06/23/17 00:00 98.2 71 18 113/73 100 06/22/17 20:14 98.2 75 20 127/63 98 Room Air 75 Intake and Output 06/23/17 06/24/17 19:00 07:00 Intake Total 240 ml Balance 240 ml Intake Oral 240 ml # Voids 1 General Appearance: WD/WN HEENT: normocephalic Respiratory/Chest: chest wall non-tender, lungs clear Breasts: no masses Cardiovascular: normal peripheral pulses Abdomen: normal bowel sounds, soft, non tender Genitourinary: normal external genitalia Extremities: no cyanosis Skin: no ulcers Neurologic/Psychiatric: no motor/sensory deficits Microbiology Date/Time Source Procedure Growth Status 06/21/17 15:30 Urine,Clean Catch Urine Culture - Preliminary Gram Negative Bacillus 1 Resulted Laboratory Tests 06/23/17 05:30: White Blood Count 8.3, Red Blood Count 4.00L, Hemoglobin 8.5L, Hematocrit 28.9L , Mean Corpuscular Volume 72L, Mean Corpuscular Hemoglobin 21.2L, Mean Corpuscular Hemoglobin Concent 29.3L, Red Cell Distribution Width 17.3H, Platelet Count 173, Mean Platelet Volume 11.2H, Neutrophils (%) (Auto) 67.1, Lymphocytes (%) (Auto) 23.4, Monocytes (%) (Auto) 7.1, Eosinophils (%) (Auto) 1.7, Basophils (%) (Auto) 0.7, Sodium Level 137, Potassium Level 3.7, Chloride Level 103, Carbon Dioxide Level 29, Anion Gap 6, Blood Urea Nitrogen 10, Creatinine 1.0, Estimat Glomerular Filtration Rate > 60, Glucose Level 104, Calcium Level 8.6, Phosphorus Level 3.6, Magnesium Level 1.8, Total Bilirubin 0.5, Aspartate Amino Transf (AST/SGOT) 14L, Alanine Aminotransferase (ALT/SGPT) 13, Alkaline Phosphatase 69, Total Protein 6.8, Albumin 3.4, Globulin 3.4, Albumin/Globulin Ratio 1.0 Current Medications Medications (Trade) Dose Ordered Sig/Ester Route PRN Reason Start Time Stop Time Status Last Admin Dose Admin Cefazolin Sodium 1 gm/Dextrose 55 ml @ 110 mls/hr Q8H IVPB 06/23/17 02:00 06/29/17 17:59 06/23/17 10:56 Dextrose (Dextrose 50%) STAT PRN IV Hypoglycemia 06/23/17 19:15 07/21/17 19:14 Dextrose/Sodium Chloride 1,000 ml @ 50 mls/hr Q20H IV 06/22/17 22:30 07/21/17 20:29 Heparin Sodium (Porcine) (Heparin 5000 units/ml) 5,000 units EVERY 12 HOURS SUBQ 06/23/17 09:00 07/21/17 20:59 06/23/17 10:57 Lorazepam (Ativan 2mg/ml 1ml) 0.5 mg Q4H PRN IV For Anxiety 06/22/17 23:15 06/28/17 19:14 Morphine Sulfate (Morphine Sulfate) 1 mg Q4H PRN IVP Moderate to Severe Pain 06/22/17 23:15 06/28/17 19:14 Ondansetron HCl (Zofran) 4 mg Q6H PRN IVP Nausea & Vomiting 06/23/17 01:15 07/21/17 19:14 Thiamine HCl (Vitamin B1) 100 mg DAILY ORAL 06/23/17 09:00 07/23/17 08:59 06/23/17 10:56 NEIL HOSKINS Jun 23, 2017 18:20
[2017-06-23] MEDS: D5 1/2NS 1,000 ML IV SCH (18:22)
--- NOTE | 2017-06-23 23:46 | Progress Note ---
DATE: 06/23/2017 SUBJECTIVE: The patient was found in bed. Mother was lying next to her. She is irritable. She wants to be discharged and drive with family to [place], [place]. There is a program for borderline and she would like to participate in that program. The mother is in agreement with her. She is not endorsing any suicidal ideation. The patient is stabilized. MENTAL STATUS EXAMINATION: The patient is alert and oriented to time, self, place, and situation she is in. Mood is neutral. Affect is full range, congruent with mood. Thought process is linear. Thought content, no suicidal or homicidal ideation. ASSESSMENT: Borderline personality/overdose on Klonopin. The patient is not an imminent danger to self or others. PLAN: 1. The patient is currently on no medications. 2. We recommend to discharge the patient to mother as they for inpatient private psychiatric unit in [place]. 3. The patient is not holdable at this point. 4. We will continue to follow and adjust the medications. Prema English M.D. DR: Wang JOB#: [id number] CC:
[2017-06-24] VITALS: BP 97/56
[2017-06-24] MEDS: ceFAZolin sod 1 GM in D5W 55 ML IVPB SCH ×2 (02:29→08:37)
[2017-06-24 04:00] VITALS: BP 84/42
[2017-06-24 08:01] VITALS: BP 105/65
[2017-06-24] MEDS: Thiamine 100mg tab ORAL SCH (08:38)
[2017-06-24] MEDS: Heparin 5000 units/ml inj SUBQ SCH (08:39)
[2017-06-24 12:00] VITALS: BP 92/49
--- NOTE | 2017-06-24 13:32 | Infectious Diseases Prog Note ---
Assessment/Plan Assessment/Plan ASSESSMENT: The patient is a 21-year-old female with UTI , probable UCx : PSA ( melton S. ) Pyuria Status post drug overdose Bipolar disorder Anxiety PLAN: DC t Ancef d# 2 , start Cipro PO d# 1 / 3 Monitor CC. Monitor BMP Subjective Allergies: Coded Allergies: No Known Allergies (Unverified , 06/21/17) Subjective no new complain Objective Vital Signs Last 24 Hour Vital Signs Date Time Temp Pulse Resp B/P (MAP) Pulse Ox O2 Delivery O2 Flow Rate FiO2 06/24/17 12:45 74 80 91 06/24/17 12:00 97.9 76 18 92/49 100 06/24/17 08:01 97.9 67 18 105/65 99 06/24/17 05:27 Room Air 06/24/17 04:00 Room Air 06/24/17 04:00 97.2 65 16 84/42 100 Room Air 06/24/17 00:00 97.0 61 20 97/56 98 Room Air 06/23/17 20:00 97.3 74 20 94/47 99 Room Air 06/23/17 15:56 97.9 71 18 101/54 99 Height (Feet): 5 Height (Inches): 4.00 Weight (Pounds): 120 HEENT: mucous membranes moist Respiratory/Chest: normal breath sounds Cardiovascular: regular rhythm Abdomen: soft, non tender Microbiology Date/Time Source Procedure Growth Status 06/21/17 15:30 Urine,Clean Catch Urine Culture - Final Pseudomonas Aeruginosa Complete Current Medications Medications (Trade) Dose Ordered Sig/Ester Route PRN Reason Start Time Stop Time Status Last Admin Dose Admin Cefazolin Sodium 1 gm/Dextrose 55 ml @ 110 mls/hr Q8H IVPB 06/23/17 02:00 06/29/17 17:59 06/24/17 08:37 Dextrose (Dextrose 50%) STAT PRN IV Hypoglycemia 06/23/17 19:15 07/21/17 19:14 Dextrose/Sodium Chloride 1,000 ml @ 50 mls/hr Q20H IV 06/22/17 22:30 07/21/17 20:29 06/23/17 18:22 Heparin Sodium (Porcine) (Heparin 5000 units/ml) 5,000 units EVERY 12 HOURS SUBQ 06/23/17 09:00 1/10/18 20:59 06/24/17 08:39 Lorazepam (Ativan 2mg/ml 1ml) 0.5 mg Q4H PRN IV For Anxiety 06/22/17 23:15 06/28/17 19:14 Morphine Sulfate (Morphine Sulfate) 1 mg Q4H PRN IVP Moderate to Severe Pain 06/22/17 23:15 06/28/17 19:14 Ondansetron HCl (Zofran) 4 mg Q6H PRN IVP Nausea & Vomiting 06/23/17 01:15 07/21/17 19:14 Sodium Chloride 500 ml @ 999 mls/hr Q31M ONCE IV 06/24/17 13:00 06/24/17 13:30 UNV Thiamine HCl (Vitamin B1) 100 mg DAILY ORAL 06/23/17 09:00 07/23/17 08:59 06/24/17 08:38 WALT MAYER M.D. Jun 24, 2017 13:31
[2017-06-24] MEDS ORDERED: Sodium Chloride 500ML 500 ML IV ONE (13:45)
[2017-06-24] MEDS: D5 1/2NS 1,000 ML IV SCH (13:54)
[2017-06-24] MEDS ORDERED: Ciprofloxacin 500mg tab ORAL SCH (14:00)
--- NOTE | 2017-06-24 14:44 | Pulmonology Progress Note ---
Assessment/Plan Problems: (1) Acute encephalopathy (2) Drug overdose Assessment/Plan more awake iv fluids talked to mother at the bed site, she [place] arranged [place] bed at [place], she will drive her there by herself once she is more awake. dc with po abx Subjective ROS Limited/Unobtainable: No Constitutional: Reports: no symptoms HEENT: Repors: no symptoms Allergies: Coded Allergies: No Known Allergies (Unverified , 06/21/17) Objective Last 24 Hour Vital Signs Date Time Temp Pulse Resp B/P (MAP) Pulse Ox O2 Delivery O2 Flow Rate FiO2 06/24/17 12:45 74 80 91 06/24/17 12:00 97.9 76 18 92/49 100 06/24/17 08:01 97.9 67 18 105/65 99 06/24/17 05:27 Room Air 06/24/17 04:00 Room Air 06/24/17 04:00 97.2 65 16 84/42 100 Room Air 06/24/17 00:00 97.0 61 20 97/56 98 Room Air 06/23/17 20:00 97.3 74 20 94/47 99 Room Air 06/23/17 15:56 97.9 71 18 101/54 99 Intake and Output 06/24/17 06/25/17 19:00 07:00 Intake Total 240 ml Balance 240 ml Intake Oral 240 ml General Appearance: WD/WN HEENT: atraumatic, mucous membranes moist Respiratory/Chest: lungs clear, no respiratory distress Cardiovascular: normal peripheral pulses, regularly irregular Abdomen: soft, non tender, no mass Extremities: no cyanosis, no clubbing Skin: no rash Microbiology Date/Time Source Procedure Growth Status 06/21/17 15:30 Urine,Clean Catch Urine Culture - Final Pseudomonas Aeruginosa Complete Current Medications Medications (Trade) Dose Ordered Sig/Ester Route PRN Reason Start Time Stop Time Status Last Admin Dose Admin Cefazolin Sodium 1 gm/Dextrose 55 ml @ 110 mls/hr Q8H IVPB 06/23/17 02:00 06/29/17 17:59 06/24/17 08:37 Ciprofloxacin (Cipro 500mg tab) 500 mg EVERY 12 HOURS ORAL 06/24/17 14:00 07/01/17 13:59 Dextrose (Dextrose 50%) STAT PRN IV Hypoglycemia 06/23/17 19:15 07/21/17 19:14 Dextrose/Sodium Chloride 1,000 ml @ 50 mls/hr Q20H IV 06/22/17 22:30 07/21/17 20:29 06/24/17 13:54 Heparin Sodium (Porcine) (Heparin 5000 units/ml) 5,000 units EVERY 12 HOURS SUBQ 06/23/17 09:00 07/21/17 20:59 06/24/17 08:39 Lorazepam (Ativan 2mg/ml 1ml) 0.5 mg Q4H PRN IV For Anxiety 06/22/17 23:15 06/28/17 19:14 Morphine Sulfate (Morphine Sulfate) 1 mg Q4H PRN IVP Moderate to Severe Pain 06/22/17 23:15 06/28/17 19:14 Ondansetron HCl (Zofran) 4 mg Q6H PRN IVP Nausea & Vomiting 06/23/17 01:15 07/21/17 19:14 Thiamine HCl (Vitamin B1) 100 mg DAILY ORAL 06/23/17 09:00 07/23/17 08:59 06/24/17 08:38 NEIL HOSKINS Jun 24, 2017 14:44
[2017-06-24 16:17] VITALS: BP 93/57
[2017-06-24] MEDS ORDERED: Tubing IV Secondary IV ONE ×2 (17:17→17:44)
[2017-06-24] MEDS ORDERED: D5 1/2NS 1000ml IV ONE (17:17)
[2017-06-24] MEDS ORDERED: NS 500ML ONE (17:44)
--- NOTE | 2017-06-25 09:15 | Progress Note ---
DATE: 06/24/2017 SUBJECTIVE: The patient is doing well. Mother is in her room at bedside. No behavior issues. Calm and cooperative. No suicidal or homicidal ideation. No depressive symptoms. The patient motivated to go to [facility] for further treatment for borderline personality. MENTAL STATUS EXAMINATION: The patient is alert and oriented times self, place, and situation she is in. Mood is neutral. Affect is constricted. Congruent mood. Thought process is concrete. Thought content, no suicidal or homicidal ideations. No delusions. Insight and judgment is fair. ASSESSMENT: Borderline personality. PLAN: We will discharge the patient to family who are going to drive to [place]. Prema English M.D. DR: Wang JOB#: [id number] CC:
--- NOTE | 2017-06-25 12:16 | Discharge Summary ---
Discharge Summary Hospital Course Date of Admission Jun 21, 2017 at 15:45 Date of Discharge Jun 24, 2017 at 17:45 Admitting Diagnosis overdose NIKHIL Rivera is a 21 year old female who was admitted on Jun 21, 2017 at 15: 45 for Overdose Hospital Course [id number] Discharge Discharge Disposition Patient was discharged to home Discharge Diagnoses: iNchole Hale NP Jun 25, 2017 12:16
--- NOTE | 2017-06-25 20:00 | Discharge Summary 2 SIG ---
DATE OF ADMISSION: 06/21/2017 DATE OF DISCHARGE: 06/24/2017 CONSULTANTS: 1. Prema English M.D. 2. Darrius Rios M.D. 3. Shawn Owens M.D. 4. Jesu Shea M.D. BRIEF HOSPITAL COURSE: The patient is a 21-year-old female with unknown medical history, who was brought in by EMS and [employer] for suspected overdose. The patient sent a text message to her friends 14 hours prior and stated that she wanted to hurt herself and took 50 clonazepam tablets and a bottle of wine. She also cut right side of the neck and both wrists. On evaluation at ED, history was limited due to altered mental status and lethargy. Pupils were dilated, unlikely opioid overdose. Urine toxicology was negative. Alcohol level was negative. EKG showed normal QTC. Blood work showed normal troponin. Urine with infection. She had laceration on the left wrist and right side of neck. Wounds were cleaned and bandaged and was left open for healing with secondary intention. She was admitted to telemetry for evaluation of acute encephalopathy and drug over dose. She was placed on NPO and was started on IV fluids. She was provided a sitter for patient's safety. She underwent psychiatric evaluation. She has history of borderline personality disorder and major depressive disorder. She denied in suicidal ideation. The patient has outpatient psychiatric set up by the patient's mother. Neurologic evaluation was done. Encephalopathy was due to drug overdose. She was started on intravenous Ancef for urine infection. Urine culture showed growth of Pseudomonas. She initially had a fluctuating blood pressure. Cardiac evaluation was done and was continued on IV hydration. Electrocardiogram showed normal sinus rhythm with normal QRS and no ST to T-wave abnormality of any significant degree. She was assessed to be not an imminent danger to self or to others. Sitter was discontinued. She was cleared for discharge to continue p.o. antibiotic. Family to take patient to a psychiatric facility in [place]. FINAL DIAGNOSES: 1. Acute toxic encephalopathy. 2. Drug overdose with Klonopin. 3. Borderline personality disorder. 4. Urinary tract infection with Pseudomonas. 5. Anemia. 6. Laceration on the neck and wrists as a result of attempted suicide. DISCHARGE DISPOSITION: The patient was discharged home. DISCHARGE MEDICATIONS: Refer to medication list. DISCHARGE INSTRUCTIONS: The patient to follow up with PMD and to continue with inpatient psychiatric treatment in [place]. Bart Schafer M.D. I have been assigned to dictate discharge summary on this account and I was not involved in the patient's management. Nichole Hale N.P. DR: JOSIE JOB#: [id number] CC: ALEXANDRA
== END 2017-06-24 17:45 | disposition home or self-care (01) | DRG 917 ==
LOC: EDBD 15:09 → EMR 15:28 → 2E 15:45 → EDBEDREQ 16:08 → 4E 06-22 23:01
DX: T42.4X2A Poisoning by benzodiazepines, intentional self-harm, initial encounter (principal); G92 Toxic encephalopathy; I95.9 Hypotension, unspecified; S11.81XA Laceration without foreign body of other specified part of neck, initial encounter; N39.0 Urinary tract infection, site not specified; B96.5 Pseudomonas (aeruginosa) (mallei) (pseudomallei) as the cause of diseases classified elsewhere; S61.511A Laceration without foreign body of right wrist, initial encounter; D64.9 Anemia, unspecified; R40.0 Somnolence; Y92.009 Unspecified place in unspecified non-institutional (private) residence as the place of occurrence of the external cause; F60.3 Borderline personality disorder; S61.512A Laceration without foreign body of left wrist, initial encounter; X83.8XXA Intentional self-harm by other specified means, initial encounter
CPT/HCPCS: 36415; 80053; 80307; 80329; 81003; 81025; 82550; 83540; 83550; 83735; 84100; 84484; 85007; 85025; 87086; 87181; 93005; 99285